=== PATIENT | female | born 1965 | race Caucasian/White ===

== ENCOUNTER 2024-10-31 20:14 | Emergency (ER) | payer OTHER, SELFPAY ==
[2024-10-31 20:23] VITALS: BP 115/99; BP 126/79; PULSE 77; PULSE 80; RESP 17; TEMP 36.7; O2SAT 96; O2SAT 99; BMI 23.2
[2024-10-31 20:27] VITALS: BP 115/99; PULSE 77; RESP 17; TEMP 36.7; O2SAT 99
[2024-10-31] MEDS: Famotidine/PF 20 MG/2 ML VIAL IVPUSH (20:56)
[2024-10-31] MEDS: diphenhydrAMINE HCL 50 MG/ML VIAL IVPUSH (20:56)
[2024-10-31] MEDS: Albuterol Sulfate (0.083%) 2.5 MG/3 ML VIAL.NEB INHALE (21:21)
[2024-10-31 21:58] VITALS: BP 106/65; PULSE 89; RESP 14; TEMP 36.5; O2SAT 96
--- NOTE | 2024-10-31 22:32 | ED.ALLEREA ---
HPI - Allergic Reaction General Chief complaint: Allergic Reaction Stated complaint: Allergic reaction Time Seen by Provider: 10/31/24 20:34 Source: patient and EMS Mode of arrival: EMS Limitations: no limitations History of Present Illness ED Provider: Dr. Christina Clement HPI narrative: Patient comes to the emergency room complaining of an allergic reaction. According to the patient, she was walking with her dog, hiking, patient picked up a frog from the floor, the frog urinated in her hands and within a few minutes, she developed shortness of breath, throat tightening and swelling of the right upper eyelid. Patient called 911. EMS reports that the patient was wheezing, they gave her EpiPen, Solu-Medrol and a DuoNeb and brought her to the emergency room. When patient arrived to the emergency room, patient complaining of symptom improvement. However she still had some foreign body sensation in her throat. Related Data Previous Rx's ?Medication ?Instructions ?Recorded famotidine 40 mg tablet (Pepcid) 40 mg PO DAILY #4 tabs 10/31/24 prednisone 50 mg tablet 50 mg PO DAILY #4 tabs 10/31/24 Allergies Allergy/AdvReac Type Severity Reaction Status Date / Time Penicillins [PENICILLINS] Allergy Unknown UNKNOWN Verified 10/31/24 20:26 sulfamethoxazole Allergy Unknown unk Verified 10/31/24 20:26 [From BACTRIM] trimethoprim [From BACTRIM] Allergy Unknown unk Verified 10/31/24 20:26 frog urine Allergy Intermediate Shortness Uncoded 10/31/24 22:34 of Breath Review of Systems Review of Systems: Constitutional : No Weight loss, No Fever, No Chills, No Night Sweats, No Fatigue, No Malaise ENT/Mouth : No Hearing loss, No Ear Pain, No Nasal Congestion, No Sinus Pain, No Hoarseness, earlier today complaining of sensation of throat closing, no sore throat, No Rhinorrhea, No Swallowing Difficulty Eyes: No Eye Pain, No Swelling, No Redness, No Foreign Body, No Discharge, No Vision Changes Cardiovascular : No Chest Pain, denies orthopnea or edema or palpitations Respiratory : No Cough, No Sputum, complaining of Wheezing, No Smoke Exposure, complaining of Dyspnea Gastrointestinal : No Nausea, No Vomiting, No Diarrhea, No Constipation, No abdominal Pain, No Hematochezia, No Melena Genitourinary : no irregular bleeding, No Dysuria, No Urinary Frequency, No Hematuria, No Urinary Incontinence, No Urgency, No Flank Pain, No Urinary Flow Changes, No Hesitancy Musculoskeletal : No joint pain, No Myalgias, No Joint Swelling Skin : No Skin Lesions, No rash Neuro : No Weakness, No Numbness, No Paresthesias, No Loss of Consciousness, No Dizziness, No Headache Psych : No Anxiety/Panic, No Depression, No SI/HI/AH/VH, No Social Issues, Heme/Lymph: No Bruising, No Bleeding,No Lymphadenopathy Endocrine : No Polyuria, No Polydipsia, No Temperature Intolerance [facility] Social History Social History Smoked in Last 30 Days: Yes Use of substances other than those prescribed or required for medical reasons: No Advance Directives: No Advance Directives Information Provided: Yes Patient : No Physical Exam ED Vital Signs: Vital Signs - 24 hr 10/31/24 20:23 10/31/24 20:27 10/31/24 21:58 Temperature 98.1 F 98.1 F 97.7 F Pulse Rate 77 77 89 Respiratory Rate 17 17 14 Blood Pressure 115/99 H 115/99 H 106/65 Pulse Oximetry 99 99 96 Oxygen Delivery Method Room Air Room Air Room Air BMI result Body Mass Index 23.2 Const Other: Appearance: Alert. Oriented X3. No acute distress. Eyes: Pupils equal, round and reactive to light. Upper eyelid on the right is mildly swollen ENT: Pharynx normal. No angioedema Neck: Normal inspection. Neck supple. No lymph nodes noted. No crepitus CVS: Normal heart rate and rhythm. Pulses normal. Normal S1 and S2 Respiratory: No respiratory distress. Breath sounds normal. No Wheezing. No rales Abdomen: Soft and nontender. No rigidity. No distention. Skin: Skin warm and dry. Normal skin color. Normal skin turgor. Extremities: No lower extremity edema. No Lacerations. No Rash Neuro: Oriented X 3. No motor deficit. No sensory deficit. Moving all extremities. No slurred speech. CN 2 through 12 grossly intact Psych: calm, cooperative, normal affect Course Course Course Narrative: Patient reports being allergic to frog urine Patient already received per EMS EpiPen, Solu-Medrol, DuoNeb Medications Administered Discontinued Medications Generic Name Dose Route Start Last Admin Trade Name Freq PRN Reason Stop Dose Admin Albuterol Sulfate 2.5 mg 10/31/24 20:43 10/31/24 21:21 Albuterol Sulfate (0.083%) 2.5 Mg/3 Ml Vial.Neb INHALE 10/31/24 20:44 2.5 mg ONCE ONE Administration Diphenhydramine HCl 50 mg 10/31/24 20:43 10/31/24 20:56 Diphenhydramine Hcl 50 Mg/Ml Vial IVPUSH 10/31/24 20:44 50 mg ONCE ONE Administration Famotidine 20 mg 10/31/24 20:43 10/31/24 20:56 Famotidine/Pf 20 Mg/2 Ml Vial IVPUSH 10/31/24 20:44 20 mg ONCE ONE Administration Medical Decision Making Medical Decision Making MDM Narrative: Here in the emergency room patient was additionally given Benadryl and Pepcid and an albuterol treatment. After the above-mentioned treatment, patient states that she feels much better. The upper eyelid on the right still slightly swollen but improved. Patient has no difficulty breathing, no signs of angioedema, airway is not compromised. Vitals stable, blood pressure 106/65, heart rate 89, respirations 14, oxygen saturation 96-99% on room air Although patient reports that she is allergic to the frog urine, it is possible that patient may be allergic to the mucous of the frog? Versus other allergens while she was hiking. Differential Diagnosis Differential Diagnoses: The differential diagnosis associated with the presentation includes (Allergic reaction, hypersensitivity reaction, anaphylaxis) Admission/Observation Consideration of admission/observation: Escalation of care including admission/observation considered (Given patient's symptoms, observation was considered) Critical Care Time Critical Care Time Critical Care Time: Yes Total Critical Care Time: 45 Attestation: I have personally provided critical care time. Time includes review of lab data, radiology results, discussion with consultants, and monitoring for potential decompensation. Intervention performed as documented. Discharge Plan Discharge Clinical Impression: Allergic reaction Patient Disposition: Home, Self-Care Instructions: General Allergic Reaction (ED) Additional Instructions: Please follow-up with your primary care physician tomorrow. If you have any worsening or new symptoms, please return to the emergency room or call 911 Prescriptions: New prednisone 50 mg tablet 50 mg PO DAILY Qty: 4 0RF famotidine [Pepcid] 40 mg tablet 40 mg PO DAILY Qty: 4 0RF Print Language: Faroese
[2024-10-31 22:56] VITALS: BP 106/65; PULSE 89; RESP 14; TEMP 36.5; O2SAT 96
== END 2024-10-31 22:57 | disposition home or self-care (01) ==
PROVIDERS: Emergency Provider Emergency Medicine
DX: T78.40XA Allergy, unspecified, initial encounter (principal); R06.02 Shortness of breath; X58.XXXA Exposure to other specified factors, initial encounter
CPT/HCPCS: 96374; 96375; 99284; J1200; J1308